=== PATIENT | male | born 1960 | race Caucasian/White ===

== ENCOUNTER 2020-02-22 00:38 | Inpatient (IN) ==
[2020-02-22] MEDS ORDERED: SODIUM CHLORIDE 0.9% 500 ML IV STA (00:55)
[2020-02-22 01:27] LABS: Basophils % 0.5 % (0.0-0.8); Hematocrit 46.7 VOL% (42.0-52.0); Hemoglobin 15.4 GM/DL (14.0-18.0); Immature Granulocytes % 0.5 %; Immature Granulocytes Absolute 0.02 #; Lymphocytes # 0.9 10*3/uL (1.4-4.0); Lymphocytes % 22.7 % (21.2-54.2); Mean Corpuscular Volume 89.6 FL (87-102); Mean Platelet Volume 11.3 FL (9.6-12.0); Neutrophils % 60.3 % (38.7-73.9); Platelet Count 153 T/CUMM (130-400); Red Blood Count 5.21 MC/CUMM (3.8-5.5); Red Cell Distribution Width 13.2 % (9.3-17.3)
[2020-02-22 01:45] LABS: Apearance,Urine CLEAR (Clear); Bilirubin,Urine Negative (Negative); Blood, Urine Negative (Negative); Glucose,Urine (UA) Negative (Negative); Hyaline Casts,Urine 1 /LPF (0-3); Ketones,Urine 5 mg/dL (Negative); Mucus,Urine Occasional /LPF (Occasional); Nitrite,Urine Negative (Negative); Protein,Urine Negative; RBC,Urine 5 /HPF (0-4); Urine Color Amber (Yellow); WBC,Urine 1 /HPF (0-6)
[2020-02-22 01:48] LABS: Alanine Aminotransferase 22 U/L (16-61); Albumin 2.9 G/DL (3.4-5.0); Alkaline Phosphatase 89 U/L (45-117); Aspartate Amino Transferase 20 U/L (0-37); Blood Urea Nitrogen 16 MG/DL (7-18); Calcium 9.1 MG/DL (8.5-10.1); Glucose 80 MG/DL (74-106); Osmolality,Calculated 259.8 MOS/KG (273-304); Total Protein 7.5 G/DL (6.4-8.3)
[2020-02-22 01:49] LABS: Estimated Glom Filtration Rate 0 ML/MIN
[2020-02-22 01:50] LABS: Ferritin 454.6 ng/ml (26-388)
[2020-02-22 02:03] LABS: Barbiturates Screen,Urine Negative (Negative); Benzodiazepines Screen,Urine Negative (Negative); Cannabinoid Screen,Urine Negative (Negative); Opiate Screen,Urine Negative (Negative); Phencyclidine Screen,Urine Negative (Negative)
[2020-02-22] MEDS ORDERED: POTASSIUM CHLORIDE 20 MEQ TABLET PO STA (02:05)
[2020-02-22] MEDS ORDERED: MAGNESIUM SULF RIDER 2 GM in PREMIX 1 EACH IV STA (02:05)
[2020-02-22] MEDS ORDERED: ACETAMINOPHEN 500 MG TABLET PO STA (02:09)
[2020-02-22 04:20] LABS: Eosinophils 1 % (0-10); Lymphocytes 20 % (20-55); Metamyelocytes 2 %; Segmented Neutrophils 61 % (50-85); Total Cells Counted 100
[2020-02-22 04:21] LABS: Hypochromasia 2+; Platelet Estimate Adequate
[2020-02-22] MEDS ORDERED: MAGNESIUM SULF RIDER 4 GM in PREMIX 1 EACH IV PRN (08:58)
[2020-02-22] MEDS ORDERED: MAGNESIUM SULF RIDER 2 GM in PREMIX 1 EACH IV PRN (08:58)
[2020-02-22] MEDS ORDERED: DOCUSATE SODIUM 100 MG CAPSULE PO PRN (08:58)
[2020-02-22] MEDS ORDERED: ONDANSETRON 4 MG/2 ML VIAL IV PRN (08:58)
[2020-02-22] MEDS ORDERED: AZITHROMYCIN 250 MG TABLET PO SCH (09:00)
[2020-02-22] MEDS ORDERED: SODIUM CHLORIDE 0.9% 100 ML IV ONE (09:09)
[2020-02-22] MEDS: ENOXAPARIN 40 MG/0.4 ML SYRINGE SUBCUT SCH (09:15)
[2020-02-22] MEDS: cefTRIAXone 1,000 MG in SYRINGE 1 EACH IV SCH (09:15)
[2020-02-22 11:02] LABS: Calcium 8.3 MG/DL (8.5-10.1); Osmolality,Calculated 263.5 MOS/KG (273-304)
[2020-02-22 11:12] LABS: Risk Ratio 4.82; VLDL CHOLESTEROL 19.4 MG/DL
[2020-02-22 11:40] LABS: Basophils % 0.5 % (0.0-0.8); Eosinophils % 0.3 % (0.00-10.9); Hematocrit 44.5 VOL% (42.0-52.0); Hemoglobin 14.3 GM/DL (14.0-18.0); Immature Granulocytes % 0.3 %; Immature Granulocytes Absolute 0.01 #; Lymphocytes % 27.1 % (21.2-54.2); Mean Corpuscular HGB Conc 32.1 GM/DL (32-36); Mean Corpuscular Volume 91.6 FL (87-102); Mean Platelet Volume 11.1 FL (9.6-12.0); Monocytes % 16.2 % (1.7-12.7); Neutrophils % 55.6 % (38.7-73.9); Platelet Count 143 T/CUMM (130-400); Red Blood Count 4.86 MC/CUMM (3.8-5.5); Red Cell Distribution Width 13.2 % (9.3-17.3); White Blood Count 3.7 T/CUMM (4-12)
[2020-02-22 12:02] LABS: Anisocytosis Slight; Band Neutrophils 9 % (0-10); Lymphocytes 25 % (20-55); Platelet Estimate Adequate; Segmented Neutrophils 46 % (50-85); Total Cells Counted 100
[2020-02-23 05:54] LABS: Basophils % 0.2 % (0.0-0.8); Hematocrit 44.6 VOL% (42.0-52.0); Hemoglobin 14.6 GM/DL (14.0-18.0); Immature Granulocytes % 0.2 %; Immature Granulocytes Absolute 0.01 #; Lymphocytes # 0.9 10*3/uL (1.4-4.0); Lymphocytes % 20.2 % (21.2-54.2); Mean Corpuscular HGB Conc 32.7 GM/DL (32-36); Mean Corpuscular Volume 91.6 FL (87-102); Mean Platelet Volume 11.5 FL (9.6-12.0); Monocytes % 13.5 % (1.7-12.7); Neutrophils % 65.9 % (38.7-73.9); Platelet Count 153 T/CUMM (130-400); Red Blood Count 4.87 MC/CUMM (3.8-5.5); Red Cell Distribution Width 13.2 % (9.3-17.3); White Blood Count 4.3 T/CUMM (4-12)
[2020-02-23 06:05] LABS: Calcium 8.2 MG/DL (8.5-10.1); Osmolality,Calculated 263.4 MOS/KG (273-304)
[2020-02-23] MEDS: ENOXAPARIN 40 MG/0.4 ML SYRINGE SUBCUT SCH (09:45)
[2020-02-23] MEDS: AZITHROMYCIN 250 MG TABLET PO SCH (09:45)
[2020-02-23] MEDS: POTASSIUM CHLORIDE 20 MEQ TABLET PO PRN ×2 (09:45→17:29)
[2020-02-23] MEDS: cefTRIAXone 1,000 MG in SYRINGE 1 EACH IV SCH (09:45)
[2020-02-23] MEDS: CALCIUM (CARBONATE)/VITAMIN D 600 MG-400 UNIT TABLET PO SCH (17:28)
[2020-02-23] MEDS ORDERED: BENZTROPINE 1 MG TABLET PO SCH (20:00)
[2020-02-23] MEDS: OLANZapine 5 MG TABLET PO SCH (20:25)
[2020-02-23] MEDS: MONTELUKAST 10 MG TABLET PO SCH (20:25)
[2020-02-23] MEDS: BISACODYL 5 MG TABLET PO SCH (20:25)
[2020-02-23] MEDS: DOCUSATE SODIUM 100 MG CAPSULE PO SCH (20:25)
[2020-02-23] MEDS: VALPROIC ACID 250 MG/5 ML UDCUP PO SCH (20:25)
[2020-02-24] MEDS: LEVOTHYROXINE 75 MCG TABLET PO SCH (06:46)
[2020-02-24 07:28] LABS: Basophils % 0.7 % (0.0-0.8); Hematocrit 44.9 VOL% (42.0-52.0); Hemoglobin 15.1 GM/DL (14.0-18.0); Immature Granulocytes % 0.7 %; Immature Granulocytes Absolute 0.03 #; Lymphocytes % 25.7 % (21.2-54.2); Mean Corpuscular HGB Conc 33.6 GM/DL (32-36); Mean Corpuscular Volume 88.2 FL (87-102); Mean Platelet Volume 12.4 FL (9.6-12.0); Monocytes % 16.6 % (1.7-12.7); Neutrophils % 56.3 % (38.7-73.9); Platelet Count 129 T/CUMM (130-400); Red Blood Count 5.09 MC/CUMM (3.8-5.5); Red Cell Distribution Width 13.2 % (9.3-17.3)
[2020-02-24 07:45] LABS: Calcium 8.3 MG/DL (8.5-10.1); Osmolality,Calculated 258.7 MOS/KG (273-304)
[2020-02-24] MEDS: cefTRIAXone 1,000 MG in SYRINGE 1 EACH IV SCH (09:50)
[2020-02-24] MEDS: VALPROIC ACID 250 MG/5 ML UDCUP PO SCH ×2 (09:50→21:20)
[2020-02-24] MEDS: CYANOCOBALAMIN 500 MCG TABLET PO SCH (09:50)
[2020-02-24] MEDS: FOLIC ACID 1 MG TABLET PO SCH (09:50)
[2020-02-24] MEDS: AZITHROMYCIN 250 MG TABLET PO SCH (09:50)
[2020-02-24] MEDS: ENOXAPARIN 40 MG/0.4 ML SYRINGE SUBCUT SCH (09:50)
[2020-02-24] MEDS: METOPROLOL TARTRATE 50 MG TABLET PO SCH (09:50)
[2020-02-24] MEDS: CALCIUM (CARBONATE)/VITAMIN D 600 MG-400 UNIT TABLET PO SCH ×2 (09:50→16:30)
[2020-02-24] MEDS: ACETAMINOPHEN 325 MG TABLET PO PRN (12:15)
[2020-02-24 13:15] LABS: Band Neutrophils 4 % (0-10); Lymphocytes 38 % (20-55); Platelet Estimate Adequate; Polychromasia Slight; Segmented Neutrophils 56 % (50-85); Total Cells Counted 100
[2020-02-24 13:16] LABS: Atypical Lymphocytes Few
[2020-02-24] MEDS ORDERED: DEXTROSE 5% NACL 0.9% 1,000 ML IV SCH (14:00)
[2020-02-24] MEDS ORDERED: BENZTROPINE 1 MG TABLET PO SCH (21:00)
[2020-02-24] MEDS: OLANZapine 5 MG TABLET PO SCH (21:20)
[2020-02-24] MEDS: MONTELUKAST 10 MG TABLET PO SCH (21:20)
[2020-02-24] MEDS: DOCUSATE SODIUM 100 MG CAPSULE PO SCH (21:20)
[2020-02-24] MEDS: BISACODYL 5 MG TABLET PO SCH (21:20)
[2020-02-25] MEDS: ACETAMINOPHEN 325 MG TABLET PO PRN (03:45)
[2020-02-25] MEDS: LEVOTHYROXINE 75 MCG TABLET PO SCH (06:03)
[2020-02-25 06:27] LABS: Basophils % 0.2 % (0.0-0.8); Eosinophils % 0.2 % (0.00-10.9); Hematocrit 39.5 VOL% (42.0-52.0); Hemoglobin 13.1 GM/DL (14.0-18.0); Immature Granulocytes % 0.5 %; Immature Granulocytes Absolute 0.02 #; Lymphocytes % 22.7 % (21.2-54.2); Mean Corpuscular HGB Conc 33.2 GM/DL (32-36); Mean Corpuscular Volume 88.2 FL (87-102); Mean Platelet Volume 11.5 FL (9.6-12.0); Monocytes % 13.5 % (1.7-12.7); Neutrophils % 62.9 % (38.7-73.9); Platelet Count 160 T/CUMM (130-400); Red Blood Count 4.48 MC/CUMM (3.8-5.5); Red Cell Distribution Width 13.1 % (9.3-17.3); White Blood Count 4.3 T/CUMM (4-12)
[2020-02-25 06:48] LABS: Calcium 8.2 MG/DL (8.5-10.1); Osmolality,Calculated 260.7 MOS/KG (273-304)
[2020-02-25] MEDS: CALCIUM (CARBONATE)/VITAMIN D 600 MG-400 UNIT TABLET PO SCH (10:40)
[2020-02-25] MEDS: cefTRIAXone 1,000 MG in SYRINGE 1 EACH IV SCH (10:40)
[2020-02-25] MEDS: ENOXAPARIN 40 MG/0.4 ML SYRINGE SUBCUT SCH (10:40)
[2020-02-25] MEDS: FOLIC ACID 1 MG TABLET PO SCH (10:40)
[2020-02-25] MEDS: VALPROIC ACID 250 MG/5 ML UDCUP PO SCH (10:40)
[2020-02-25] MEDS: CYANOCOBALAMIN 500 MCG TABLET PO SCH (10:40)
[2020-02-25] MEDS: METOPROLOL TARTRATE 50 MG TABLET PO SCH (10:40)
[2020-02-25] MEDS: AZITHROMYCIN 250 MG TABLET PO SCH (10:40)
[2020-02-25 12:04] LABS: Band Neutrophils 5 % (0-10); Lymphocytes 31 % (20-55); Segmented Neutrophils 54 % (50-85); Total Cells Counted 100
[2020-02-25 12:05] LABS: Hypochromasia 1+; Microcytosis Slight; Platelet Estimate Adequate; Polychromasia Slight
[2020-02-25 19:42] VITALS: BP 143/69
[2020-02-25] MEDS ORDERED: TAMSULOSIN 0.4 MG CAPSULE PO SCH (21:00)
== END 2020-02-25 14:55 | DRG 177 ==
LOC: EDUNIT# → EDBD → N.EDINP 00:38 → N.ED 00:38 → N.2E 13:51 → SUATTDRO 02-23 15:32
PROVIDERS: ADMIT Family Medicine; ATTEND Internal Medicine